=== PATIENT | female | born 1980 | race Hispanic/Latino ===

== ENCOUNTER 2019-10-18 21:48 | Emergency (ER) | payer SELFPAY ==
[2019-10-18] MEDS ORDERED: Dexamethasone 4 MG TAB ONE (23:04)
[2019-10-18] MEDS ORDERED: Bicillin LA 1.2 MILLION UNITS/2 ML SYRINGE ONE (23:04)
== END 2019-10-18 23:35 | disposition home or self-care (01) ==
LOC: ERS 21:48
DX: J02.9 Acute pharyngitis, unspecified (principal); J45.909 Unspecified asthma, uncomplicated; I10 Essential (primary) hypertension; F17.210 Nicotine dependence, cigarettes, uncomplicated
CPT/HCPCS: 87081; 87430; 96372; 99283; J0561; J8540

== ENCOUNTER 2023-04-27 07:52 | Emergency (ER) | payer SELFPAY | END 2023-04-27 08:54 | disposition home or self-care (01) | LOC: ERS 07:52 | DX: S61.252A Open bite of right middle finger without damage to nail, initial encounter (principal); E11.9 Type 2 diabetes mellitus without complications; I10 Essential (primary) hypertension; F17.210 Nicotine dependence, cigarettes, uncomplicated; Z79.899 Other long term (current) drug therapy; Z79.84 Long term (current) use of oral hypoglycemic drugs; Z79.82 Long term (current) use of aspirin; W54.0XXA Bitten by dog, initial encounter | CPT/HCPCS: 99283 ==

== ENCOUNTER 2023-05-03 19:01 | Emergency (ER) | payer SELFPAY ==
[2023-05-03] MEDS ORDERED: Lidocaine 1% MPF 2 ML VIAL ONE (21:41)
[2023-05-03] MEDS ORDERED: cefTRIAXone (ROCEPHIN) 1 GM VIAL ONE (21:41)
== END 2023-05-03 22:12 | disposition home or self-care (01) ==
LOC: ERS 19:01
DX: S62.633B Displaced fracture of distal phalanx of left middle finger, initial encounter for open fracture (principal); E11.9 Type 2 diabetes mellitus without complications; I10 Essential (primary) hypertension; F17.210 Nicotine dependence, cigarettes, uncomplicated; Z79.84 Long term (current) use of oral hypoglycemic drugs; Z79.82 Long term (current) use of aspirin; Z79.899 Other long term (current) drug therapy; W54.0XXA Bitten by dog, initial encounter
CPT/HCPCS: 96372; J0696

== ENCOUNTER 2023-05-29 13:53 | Inpatient (IN) | payer MEDICAID, SELFPAY ==
[2023-05-29] MEDS ORDERED: Tobramycin Sulfate 1.2 GM VIAL ONE (15:37)
[2023-05-29] MEDS ORDERED: Bacitracin Zinc Ointment 30 gm TUBE ONE (15:37)
[2023-05-29] MEDS ORDERED: Vancomycin 1 GM VIAL ONE (15:37)
[2023-05-29] MEDS ORDERED: Bupivacaine PF 0.5% 30 ML VIAL ONE (15:38)
[2023-05-29] MEDS ORDERED: PROPOFOL 20 ML ONE (15:49)
[2023-05-29] MEDS ORDERED: Lidocaine 1% PF 5 ML VIAL ONE (15:49)
[2023-05-29] MEDS ORDERED: fentaNYL 50 mcg/mL 1 mL Vial ONE ×2 (15:49→16:36)
[2023-05-29] MEDS ORDERED: Ondansetron PF 4 MG/2 ML Vial ONE ×2 (15:49→18:03)
[2023-05-29] MEDS ORDERED: Midazolam HCl 2 mg/2 ml Vial ONE (15:52)
[2023-05-29] MEDS ORDERED: Dexamethasone 4 mg/ml Vial ONE (16:37)
[2023-05-29 18:33] VITALS: BMI 40.6
[2023-05-29] MEDS ORDERED: Promethazine HCl 25 MG/ML VIAL IM PRN (18:36)
[2023-05-29] MEDS ORDERED: Acetaminophen/Codeine 30-300mg Tablet PO PRN (18:36)
[2023-05-29] MEDS ORDERED: Milk Of Magnesia 30 ML UDCUP PO PRN (18:36)
[2023-05-29] MEDS ORDERED: Bisacodyl 10 MG SUPP PR PRN (18:36)
[2023-05-29] MEDS ORDERED: Morphine 4 MG/ML VIAL SLOW IVP PRN (18:36)
[2023-05-29] MEDS ORDERED: Meperidine HCl/PF 25 MG (1 mL) VIAL IM PRN (18:41)
[2023-05-29] MEDS ORDERED: Communication Order-Pharmacy FS SCH (18:45)
[2023-05-29 19:17] LABS: #Eosinphils 0.1 thou/uL (0.0-0.7); #Monocytes 0.2 thou/uL (0.11-0.59); #Neutrophils 4.4 thou/uL (1.40-6.50); %Basophils 0.7 % (0.0-1.0); %Eosinophils 1.3 % (0.0-10.0); %Lymphocytes 22.5 % (21.0-51.0); %Monocytes 2.6 % (0.0-10.0); %Neutrophils 72.4 % (42.0-75.0); Hematocrit 38.1 % (36.0-47.0); Hemoglobin 13.1 g/dL (12.0-16.0); Mean Corpuscular HGB CONC 34.4 g/dL (32.0-36.0); Mean Corpuscular Hemoglobin 29.6 pg (27.0-31.0); Mean Corpuscular Volume 86.2 fl (78.0-98.0); Mean Platelet Volume 9.8 fL (7.4-10.4); Platelet Count 299 10x3/uL (130-400); RBC Distribution Width 12.8 % (11.5-14.5); Red Blood Cell (RBC) Count 4.42 mill/uL (4.20-5.40)
[2023-05-29] MEDS: Vancomycin (BATCH) 1.5 GM in Premix 1 BAG IVPB SCH (21:23)
[2023-05-29] MEDS: Aspirin 81 mg Enteric Coated Tablet PO SCH (21:24)
[2023-05-30] MEDS: Ketorolac Tromethamine 30 MG (1 mL) VIAL IVP SCH (00:15)
[2023-05-30] MEDS: Ondansetron PF 4 MG/2 ML Vial SLOW IVP PRN (00:15)
[2023-05-30] MEDS: TETANUS, DIPHTHERIA TOX,ADULT (TDVAX) 0.5 ML VIAL IM ONE (00:16)
[2023-05-30 04:10] LABS: #Monocytes 0.5 thou/uL (0.11-0.59); #Neutrophils 6.2 thou/uL (1.40-6.50); %Basophils 0.3 % (0.0-1.0); %Eosinophils 0.3 % (0.0-10.0); %Lymphocytes 24.8 % (21.0-51.0); %Monocytes 5.4 % (0.0-10.0); %Neutrophils 68.8 % (42.0-75.0); Hematocrit 37.4 % (36.0-47.0); Mean Corpuscular HGB CONC 34.8 g/dL (32.0-36.0); Mean Corpuscular Hemoglobin 29.5 pg (27.0-31.0); Mean Corpuscular Volume 84.8 fl (78.0-98.0); Mean Platelet Volume 10.1 fL (7.4-10.4); Platelet Count 337 10x3/uL (130-400); RBC Distribution Width 12.6 % (11.5-14.5); Red Blood Cell (RBC) Count 4.41 mill/uL (4.20-5.40); White Blood Cell (WBC) Count 9.1 10x3/uL (4.8-10.8)
[2023-05-30 04:39] LABS: ALT (SGPT) 20 U/L (8-55); AST (SGOT) 18 U/L (5-34); Albumin 3.8 g/dL (3.5-5.0); Alkaline Phosphatase 42 U/L (40-110); Anion Gap 14 mmol/L (10-20); BUN (Urea Nitrogen) 19 mg/dL (7.0-18.7); Bilirubin, Total 0.4 mg/dL (0.2-1.2); Calc. Creatinine Clearance 146 mL/min (70-130); Calcium 8.9 mg/dL (7.8-10.44); Carbon Dioxide 19 mmol/L (22-29); Chloride 104 mmol/L (98-107); Estimated GFR 85; Globulin 3.2 g/dL (2.4-3.5); Glucose 214 mg/dL (70-105); Sodium 133 mmol/L (136-145)
[2023-05-30] MEDS ORDERED: Dextrose 5% in Water 1,000 ML IV PRN (09:24)
[2023-05-30] MEDS ORDERED: Glucagon 1 MG/ML KIT IM PRN (09:24)
[2023-05-30] MEDS ORDERED: Dextrose 50% Abboject 50 ML SYRINGE SLOW IVP PRN (09:24)
[2023-05-30] MEDS: HYDROcodone/Acetaminophen 5/325 mg Tablet PO PRN (15:22)
[2023-05-30] MEDS ORDERED: Albuterol HFA (OR) 200 PUFF INH INH PRN (18:38)
[2023-05-30] MEDS: Insulin Regular 300 UNITS/3 ML VIAL SC PRN (22:06)
[2023-05-31 09:19] LABS: Vancomycin, Trough 5.7 ug/mL
[2023-05-31] MEDS: Hydrochlorothiazide 25 MG TAB PO SCH (09:52)
[2023-05-31] MEDS: Lisinopril 10 MG TAB PO SCH (09:53)
[2023-05-31] MEDS: Enoxaparin 40 MG (0.4 mL) SYRINGE SC SCH (09:56)
[2023-05-31] MEDS: metFORMIN 500 MG TAB PO SCH (10:51)
[2023-05-31] MEDS ORDERED: Piperacillin/Tazobactam 3.375 GM in Sodium Chloride 0.9% 100 ML IVPB SCH (12:45)
[2023-05-31] MEDS: Ibuprofen 200 MG TAB PO PRN (14:10)
[2023-05-31] MEDS: Piperacillin/Tazobactam 3.375 GM in Sodium Chloride 0.9% 100 ML IVPB SCH ×2 (14:16→17:43)
[2023-05-31] MEDS: Vancomycin (BATCH) 1.5 GM in Premix 1 BAG IVPB SCH (17:43)
[2023-05-31] MEDS ORDERED: Vancomycin (BATCH) 1.5 GM in Premix 1 BAG IVPB SCH (21:00)
[2023-06-01 10:17] LABS: Vancomycin, Trough 8.9 ug/mL
[2023-06-01] MEDS ORDERED: Sodium Bicarbonate 2.5 MEQ/5 ML SDV ONE (13:02)
[2023-06-01] MEDS ORDERED: Lidocaine 1% PF 5 ML VIAL ONE (13:02)
[2023-06-01] MEDS: Meropenem 1 GM in Sodium Chloride 0.9% 100 ML IVPB SCH ×2 (13:48→21:34)
[2023-06-01] MEDS: DAPTOmycin 800 MG in Sodium Chloride 0.9% 50 ML IVPB SCH ×2 (14:56→15:01)
[2023-06-01] MEDS ORDERED: Vancomycin (BATCH) 1.25 GM in Premix 1 BAG IVPB SCH (16:00)
[2023-06-02] MEDS ORDERED: Albuterol 200 PUFF (6.7GM INHALER) INH PRN (12:13)
[2023-06-02] MEDS ORDERED: Albuterol 200 PUFF INH INH PRN (12:39)
[2023-06-03 07:54] VITALS: TEMP 97.4
[2023-06-03] MEDS: Ertapenem 1 GM in Sodium Chloride 0.9% 100 ML IVPB SCH (11:10)
[2023-06-03 12:03] VITALS: BP 133/68
== END 2023-06-03 13:45 | disposition home or self-care (01) | DRG 629 ==
LOC: SDC 13:53 → SURG A 17:46 → OBSVTOIN 05-31 18:40
PROVIDERS: ADMIT Orthopaedic Surgery Hand Surgery; ATTEND Internal Medicine
PROC: 0PBT0ZZ Excision of Right Finger Phalanx, Open Approach (ICD-10-PCS; principal; 2023-05-29)
PROC: 0J9J0ZZ Drainage of Right Hand Subcutaneous Tissue and Fascia, Open Approach (ICD-10-PCS; 2023-05-30)
PROC: 02HV33Z Insertion of Infusion Device into Superior Vena Cava, Percutaneous Approach (ICD-10-PCS; 2023-05-31)
PROC: B5181ZA Fluoroscopy of Superior Vena Cava using Low Osmolar Contrast, Guidance (ICD-10-PCS; 2023-05-31)
PROC: 3E04329 Introduction of Other Anti-infective into Central Vein, Percutaneous Approach (ICD-10-PCS; 2023-05-31)
DX: E11.69 Type 2 diabetes mellitus with other specified complication (principal); L02.511 Cutaneous abscess of right hand; M86.8X4 Other osteomyelitis, hand; Z68.41 Body mass index [BMI] 40.0-44.9, adult; M86.441 Chronic osteomyelitis with draining sinus, right hand; M86.8X8 Other osteomyelitis, other site; B95.61 Methicillin susceptible Staphylococcus aureus infection as the cause of diseases classified elsewhere; I10 Essential (primary) hypertension; G47.33 Obstructive sleep apnea (adult) (pediatric); F17.210 Nicotine dependence, cigarettes, uncomplicated; W54.0XXA Bitten by dog, initial encounter; E66.9 Obesity, unspecified; Z98.890 Other specified postprocedural states; Z98.891 History of uterine scar from previous surgery; Z83.3 Family history of diabetes mellitus; Z82.49 Family history of ischemic heart disease and other diseases of the circulatory system; Z71.84 Encounter for health counseling related to travel; S62.632A Displaced fracture of distal phalanx of right middle finger, initial encounter for closed fracture; L08.9 Local infection of the skin and subcutaneous tissue, unspecified
CPT/HCPCS: 36415; 36416; 36569; 80053; 80202; 85025; 87070; 87077; 87081; 87186; 87205; 90472; 90714; 96365; 96375; 96376; C1751; G0378; J0665; J0878; J1100; J1335; J1815; J1885; J2185; J2250; J2405; J2543; J2704; J3010; J3260; J3370; J3490

== ENCOUNTER 2023-10-22 10:16 | Emergency (ER) | payer SELFPAY ==
[2023-10-22] MEDS ORDERED: Dexamethasone 10 MG/ML VIAL ONE (10:49)
[2023-10-22] MEDS ORDERED: Meclizine HCl 25 MG TAB ONE (10:50)
[2023-10-22 10:58] LABS: #Basophils 0.03 10x3/uL (0.0-0.2); %Basophils 0.4 % (0.0-1.0); %Eosinophils 1.6 % (0.0-10.0); %Lymphocytes 23.6 % (21.0-51.0); %Neutrophils 68.9 % (42.0-75.0); Hematocrit 37.7 % (36.0-47.0); Mean Corpuscular HGB CONC 34.5 g/dL (32.0-36.0); Mean Corpuscular Hemoglobin 29.7 pg (27.0-31.0); Mean Corpuscular Volume 86.1 fL (78.0-98.0); Mean Platelet Volume 9.9 fL (7.4-10.4); Platelet Count 334 10x3/uL (130-400); RBC Distribution Width 13.1 % (11.5-14.5); Red Blood Cell (RBC) Count 4.38 mill/uL (4.20-5.40)
[2023-10-22 11:09] LABS: BHCG - Serum Negative (NEGATIVE); Pregs Control Background? CLEAR/WHITE (CLR/WHITE); Pregs Control Bar Appear? YES (CONTROL BAR)
[2023-10-22 11:15] LABS: ALT (SGPT) 32 U/L (8-55); AST (SGOT) 27 U/L (5-34); Albumin 3.6 g/dL (3.5-5.0); Alkaline Phosphatase 51 U/L (40-110); Anion Gap 12 mmol/L (10-20); BUN (Urea Nitrogen) 12 mg/dL (7.0-18.7); Bilirubin, Total 0.5 mg/dL (0.2-1.2); Calc. Creatinine Clearance 0 mL/min (70-130); Calcium 9.2 mg/dL (7.8-10.44); Carbon Dioxide 21 mmol/L (22-29); Chloride 106 mmol/L (98-107); Estimated GFR 102; Globulin 3.4 g/dL (2.4-3.5); Glucose 199 mg/dL (70-105); Potassium 4.2 mmol/L (3.5-5.1); Sodium 135 mmol/L (136-145)
[2023-10-22 12:19] LABS: Troponin I Less than 0.010 ng/mL (< 0.028)
== END 2023-10-22 12:55 | disposition home or self-care (01) ==
LOC: ERS 10:16
DX: R42 Dizziness and giddiness (principal); I10 Essential (primary) hypertension; E11.9 Type 2 diabetes mellitus without complications; Z55.6 Problems related to health literacy
CPT/HCPCS: 80053; 84484; 84703; 85025; 93005; J1100

== ENCOUNTER 2024-03-05 23:14 | Emergency (ER) | payer OTHER ==
[2024-03-06 00:16] LABS: #Basophils 0.09 10x3/uL (0.0-0.2); %Basophils 0.8 % (0.0-1.0); %Eosinophils 2.3 % (0.0-10.0); %Lymphocytes 42.9 % (21.0-51.0); %Monocytes 5.2 % (0.0-10.0); %Neutrophils 48.3 % (42.0-75.0); Hematocrit 38.6 % (36.0-47.0); Hemoglobin 13.3 g/dL (12.0-16.0); Mean Corpuscular HGB CONC 34.5 g/dL (32.0-36.0); Mean Corpuscular Hemoglobin 29.8 pg (27.0-31.0); Mean Corpuscular Volume 86.5 fL (78.0-98.0); Mean Platelet Volume 10.4 fL (7.4-10.4); Platelet Count 338 10x3/uL (130-400); Red Blood Cell (RBC) Count 4.46 mill/uL (4.20-5.40)
[2024-03-06 00:30] LABS: ALT (SGPT) 23 U/L (8-55); AST (SGOT) 17 U/L (5-34); Albumin 3.8 g/dL (3.5-5.0); Alkaline Phosphatase 59 U/L (40-110); Anion Gap 18 mmol/L (10-20); BUN (Urea Nitrogen) 17 mg/dL (7.0-18.7); Bilirubin, Total 0.3 mg/dL (0.2-1.2); Calc. Creatinine Clearance 0 mL/min (70-130); Carbon Dioxide 20 mmol/L (22-29); Chloride 101 mmol/L (98-107); Estimated GFR 64; Globulin 3.9 g/dL (2.4-3.5); Glucose 265 mg/dL (70-105); Potassium 4.1 mmol/L (3.5-5.1); Protein, Total 7.7 g/dL (6.0-8.3); Sodium 135 mmol/L (136-145)
[2024-03-06 00:33] LABS: BHCG - Serum Negative (NEGATIVE); Pregs Control Background? CLEAR/WHITE (CLR/WHITE); Pregs Control Bar Appear? YES (CONTROL BAR)
== END 2024-03-06 01:12 | disposition home or self-care (01) ==
LOC: ERS 23:14
DX: K64.8 Other hemorrhoids (principal); K62.5 Hemorrhage of anus and rectum; K59.00 Constipation, unspecified; I10 Essential (primary) hypertension; E11.9 Type 2 diabetes mellitus without complications; F17.210 Nicotine dependence, cigarettes, uncomplicated
CPT/HCPCS: 80053; 82274; 84703; 85025; 99283

== ENCOUNTER 2025-01-25 08:44 | Emergency (ER) | payer OTHER, SELFPAY ==
[2025-01-25 09:18] LABS: #Basophils 0.05 10x3/uL (0.0-0.2); #Eosinophils 0.20 10x3/uL (0.0-0.7); #Monocytes 0.40 10x3/uL (0.11-0.59); #Neutrophils 3.72 10x3/uL (1.40-6.50); %Basophils 0.7 % (0.0-1.0); %Eosinophils 2.7 % (0.0-10.0); %Lymphocytes 39.3 % (21.0-51.0); %Monocytes 5.5 % (0.0-10.0); %Neutrophils 50.8 % (42.0-75.0); Hematocrit 39.5 % (36.0-47.0); Hemoglobin 13.1 g/dL (12.0-16.0); Mean Corpuscular Hemoglobin 28.2 pg (27.0-31.0); Mean Corpuscular Volume 84.9 fL (78.0-98.0); Platelet Count 348 10x3/uL (130-400); Red Blood Cell (RBC) Count 4.65 mill/uL (4.20-5.40); White Blood Cell (WBC) Count 7.31 10x3/uL (4.8-10.8)
[2025-01-25] MEDS ORDERED: Aspirin Chewable 81 MG TAB ONE (09:28)
[2025-01-25] MEDS ORDERED: Nitroglycerin 0.4 MG TAB 1 EACH ONE (09:30)
[2025-01-25 09:32] LABS: ALT (SGPT) 25 U/L (Less than 34); AST (SGOT) 29 U/L (11-34); Albumin 3.8 g/dL (3.1-4.5); Alkaline Phosphatase 56 U/L (40-110); Anion Gap 15 mmol/L (10-20); BUN (Urea Nitrogen) 13 mg/dL (7.0-18.7); Bilirubin, Total 0.2 mg/dL (0.3-1.2); Calc. Creatinine Clearance 0 mL/min (70-130); Calcium 9.2 mg/dL (7.8-10.44); Carbon Dioxide 22 mmol/L (22-29); Chloride 103 mmol/L (98-107); Globulin 3.6 g/dL (2.4-3.5); Glucose 215 mg/dL (70-105); Lipase 17 U/L (8-78); Potassium 4.4 mmol/L (3.5-5.1); Sodium 136 mmol/L (136-145)
== END 2025-01-25 12:09 | disposition home or self-care (01) ==
LOC: EEVIPCON 08:44 → ERS 08:44
DX: R00.2 Palpitations (principal); K08.89 Other specified disorders of teeth and supporting structures; E11.65 Type 2 diabetes mellitus with hyperglycemia; I10 Essential (primary) hypertension; F17.210 Nicotine dependence, cigarettes, uncomplicated; Z79.899 Other long term (current) drug therapy; Z79.82 Long term (current) use of aspirin
CPT/HCPCS: 36415; 71046; 80053; 83690; 84484; 85025; 85379; 93005; 94760